=== PATIENT | male | born 2000 | race Caucasian/White ===

== ENCOUNTER 2022-02-24 20:03 | Observation (INO) | payer OTHER, SELFPAY ==
[2022-02-24] VITALS (11 sets, daily range): BP systolic 126–156; BP diastolic 51–74; PULSE 57–82; RESP 12–23; TEMP 36.7; O2SAT 98–100
--- NOTE | ~2022-02-24 | XR_ITS ---
EXAMINATION: XR chest 1V portable DATE: 02/24/2022 21:43 INDICATION: Cough and shortness of breath. TECHNIQUE: A single frontal view of the chest was obtained. COMPARISON: Chest 2 views 03/09/2007 FINDINGS: There is no pneumonia, pleural effusion, or pneumothorax. The heart size is normal. IMPRESSION: 1. No acute cardiopulmonary disease. Reviewed, dictated and finalized at location A.
[2022-02-24 20:29] LABS: Basophils Absolute Auto 0.1 K/mm3 (0.0-0.1); Basophils Percent Auto 0.5 % (0.2-1.2); Eosinophils Absolute Auto 0.1 K/mm3 (0-0.3); Eosinophils Percent Auto 0.9 % (0-4.4); Hematocrit 48.9 % (42.0-52.0); Hemoglobin 16.4 g/dL (14.0-18.0); Immature Granulocyte Absolute 0.04 K/mm3 (0.00-0.031); Immature Granulocyte Percent A 0.4 % (0-0.5); Lymphocytes Absolute Auto 3.21 K/mm3 (0.9-3.2); Lymphocytes Percent Auto 31.1 % (18.3-44.2); Mean Corpuscular HGB Conc 33.5 g/dl (32-36); Mean Corpuscular Hemoglobin 28.7 pg (26-34); Mean Corpuscular Volume 85.5 fl (80-100); Mean Platelet Volume 8.9 fl (7.4-10.4); Monocytes Absolute Auto 0.8 K/mm3 (0.1-0.6); Monocytes Percent Auto 7.4 % (2.6-8.5); Neutrophils Absolute Auto 6.2 K/mm3 (1.3-6.7); Neutrophils Percent Auto 59.7 % (45.5-73.1); Platelet Count Result 316 k/mm3 (150-375); Red Blood Count 5.72 M/mm3 (4.6-6.20); Red Cell Distribution Width 12.2 % (11.5-14.5); White Blood Count 10.3 K/mm3 (4.5-10.0)
[2022-02-24 20:41] LABS: Appearance Urine Clear (Clear); Bilirubin Urine Negative (Negative); Blood Urine Negative (Negative); Color Urine Yellow (Yellow); Glucose Urine UA Negative (Negative); Ketones Urine Negative (Negative); Leukocyte Esterase Ur Negative LEU/UL (Negative); Nitrate Urine Negative (Negative); Protein Urine Negative (Negative); Specific Grav Ur 1.015 (1.001-1.035); Urobilinogen Urine 0.2 mg/dL (<2.0); pH Urine 8.5 (5.0-9.0)
[2022-02-24 20:42] LABS: Add Urine Microscopic? NO
[2022-02-24] MEDS: SODIUM CHLORIDE 0.9% IV 1,000 ML 999 ML IV CONT (21:39)
[2022-02-24] MEDS: PANTOPRAZOLE SODIUM IV 40 MG VIAL IV PUSH (21:39)
[2022-02-24] MEDS: ONDANSETRON INJ 4 MG/2 ML VIAL IV PUSH (21:40)
[2022-02-24 21:49] LABS: Alanine Aminotransferase 17 U/L (6-50); Albumin Level 4.8 g/dL (3.7-5.6); Alkaline Phosphatase 114 U/L (58-237); Anion Gap 11 mmol/L (8-16); Aspartate Amino Transferase 24 U/L (17-59); Bilirubin,Total 0.4 mg/dL (0.2-1.3); Blood Urea Nitrogen 13 mg/dL (8-21); Calcium 9.1 mg/dL (8.9-10.7); Carbon Dioxide 27 mmol/L (22-30); Chloride 102 mmol/L (98-107); Estimated CRCL calculation 147 ml/min; Estimated Glomerular Filt Rate > 60; Glucose 91 mg/dL (65-110); Lipase 106 U/L (23-300); Potassium 4.1 mmol/L (3.4-5.0); Sodium 140 mmol/L (134-143)
--- NOTE | 2022-02-24 21:58 | ED.GENADULT ---
HPI - General Adult General Chief complaint: Abdominal Pain Stated complaint: abd pain, bodyaches Time Seen by Provider: 02/24/22 21:17 Source: patient and RN notes reviewed Mode of arrival: ambulatory Limitations: no limitations History of Present Illness HPI narrative: This is a 21 year old male who presents for evaluation of multiple complaints. He states starting 3-4 days ago he developed body aches, sore throat, nonproductive cough, diarrhea and abdominal pain. He reports his sore throat has resolved. He has intermittent epigastric abdominal pain that is currently not present. He also reports intermittent left chest pain that is random. He also reports intermittent diarrhea and he only had 1 episode today. He took 2 at home covid test that were negative. Related Data Home Medications Medication Instructions Recorded Confirmed No Home Medications 02/25/22 02/25/22 Allergies Allergy/AdvReac Type Severity Reaction Status Date / Time No Known Allergies Allergy Verified 02/24/22 21:22 Review of Systems Review of Systems: All systems reviewed & are unremarkable except as noted in HPI and below Constitutional: Constitutional: Reports chills and Reports fatigue ENT: Reports nasal congestion and Reports sore throat Cardiovascular: Cardiovascular: Reports chest pain Respiratory: Respiratory: Reports cough and Denies dyspnea Gastrointestinal: Gastrointestinal: Reports abdominal pain, Reports diarrhea and Reports nausea Genitourinary: Genitourinary: Denies hematuria and Denies dysuria Musculoskeletal: Musculoskeletal: Denies back pain and Reports myalgias PMFSH Past Medical History Medical History Patient denies medical problems Surgical History Surgical History No pertinent past surgical history Family History Family History Grandparent Heart disease Malignant neoplasm of prostate Social History Social History Social History: Patient vapes daily. Denies drug use and alcohol use. No history of drug use. 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. He lives with his girlfriend. No pets. He is a full code. Years smoked: 2 Smoking status: Current every day smoker Tobacco type: e-cigarettes/vaping Alcohol intake: never Substance use: never Spiritual care concerns: No Exam Narrative: GENERAL: Well-appearing, well-nourished, and in no acute distress. HEAD: Normocephalic, atraumatic EYES: PERRLA and EOMI, conjunctiva clear without discharge NOSE: Nares clear, no rhinorrhea or epistaxis THROAT:Mucous membranes moist, Oropharynx normal without erythema, exudate, peritonsillar swelling or fluctuance NECK: Supple, without lymphadenopathy or mass RESPIRATORY: No respiratory distress, Airway patent, Respirations non-labored, Clear to auscultation without rales, rhonchi or wheeze HEART: Regular rate and rhythm. No murmur heard. Normal peripheral pulses. ABDOMEN: Soft, nontender, nondistended, normal active bowel sounds. No masses. No rebound or guarding, No organomegaly. EXTREMITIES: No edema, normal strength with full range of motion. SKIN: Warm, dry, normal color without rash NEURO: Alert and oriented x3. CN 2-12 grossly intact. No focal deficits. PSYCH: Normal mood and affect. Course Reevaluation(s) Reevaluation #1: PAtient presents with symptoms that suggest viral syndrome. He was found to have elevated troponin. Waiting on d dimer for possible CTA. I Discussed case with DR. Andres who agrees to take over care. Date: 02/24/22 Time: 22:41 Vital Signs Vital signs: Vital Signs Temperature 98.1 F 02/24/22 20:11 Pulse Rate 68 02/24/22 20:11 Respiratory Rate 16 02/24/22 20:11 Blood Pressure 153/74 H 02/24/22 20:11 Pulse Oximetry 1
[2022-02-24 22:06] LABS: Troponin I 0.089 ng/mL (0.000-0.034)
--- NOTE | 2022-02-24 22:06 | ECG_ITS ---
Measurements Intervals [place] Rate: 65 P: 55 WA: 128 QRS: 78 QRSD: 96 T: 50 QT: 364 QTc: 378 Interpretive Statements SINUS RHYTHM WITH SINUS ARRHYTHMIA NORMAL ECG NO PREVIOUS ECG AVAILABLE FOR COMPARISON Electronically Signed On 02-25-2022 10:46:19 CDT by Douglas Quintana M.D.
--- NOTE | 2022-02-24 22:11 | PC.NURSE ---
Talked to Janna in lab at 22:11 to add on D Dimer and PT INR PTT
[2022-02-24] MEDS: ASPIRIN 81 MG CHEWABLE TABLET 324 MG PO (22:23)
[2022-02-24 22:28] LABS: INR 1.1; Prothrombin Time 13.7 Seconds (11.1-14.7)
[2022-02-24 22:29] LABS: Partial Thromboplastin Time 30.6 SECONDS (22.3-36.8)
[2022-02-24 22:45] LABS: D Dimer < 0.27 ug/mL (<0.48)
[2022-02-24 22:52] LABS: Influenza A QL RT-PCR Negative (Negative); Influenza B QL RT-PCR Negative (Negative); SARS-CoV-2 RNA PCR Negative
[2022-02-25] VITALS (27 sets, daily range): BP systolic 110–150; BP diastolic 46–85; PULSE 47–82; RESP 14–22; TEMP 36.2–37.5; O2SAT 94–100; BMI 32.5
--- NOTE | 2022-02-25 | ECHO_ITS ---
Patient Info Name: Duane Pradhan Age: 21 years : 2000 Gender: Male Ht: 72 in Wt: 240 lbs BSA: 2.38 m2 HR: 62 bpm BP: 123 / 52 mmHg Heart Rhythm: Sinus Rhythm Exam Date: 02/25/2022 1:16 PM Exam Location: [facility] Patient Status: Inpatient Admit Date: 02/25/2022 Staff Ordering Physician: Douglas Quintana MD Fishing Captain: Sadie Gould RDCS Attending Provider: Anthony Sadler MD Referring Physician: Lilian DE LA GARZA; Exam Type: CA echo doppler color flow Study Info Indications R07.9 - Chest pain, unspecified Complete two-dimensional, color flow and Doppler transthoracic echocardiogram is performed. Summary 1. Complete two-dimensional, color flow and Doppler transthoracic echocardiogram is performed. 2. Left ventricular chamber dimension is normal. 3. Left ventricular systolic function is normal, estimated at 55-60%. 4. There is no increased left ventricular wall thickness. 5. The left ventricular diastolic function is normal. 6. There is mild mitral valve regurgitation. 7. There is mild pulmonic regurgitation. Left Ventricle Left ventricular chamber dimension is normal. Left ventricular systolic function is normal, estimated at 55-60%. There is no increased left ventricular wall thickness. The left ventricular diastolic function is normal. Right Ventricle Right ventricular chamber dimension is normal. Right ventricular systolic function is normal. Left Atria Left atrial chamber dimension is normal. Right Atria Right atrial chamber dimension is normal. Atrial Septum Intact interatrial septum visualized by color flow imaging. Aortic Valve The aortic valve is trileaflet. There is no aortic valve sclerosis. There is no aortic valve stenosis. There is trace aortic valve regurgitation. Pulmonic Valve The pulmonic valve is normal. There is no pulmonic valve stenosis. There is mild pulmonic regurgitation. Mitral Valve The mitral valve has normal leaflets. There is no mitral valve stenosis. There is mild mitral valve regurgitation. Tricuspid Valve The tricuspid valve leaflets are normal. There is no significant tricuspid valve stenosis. There is trace tricuspid valve regurgitation. Pericardium/Pleural The pericardium appears normal. There is no pericardial effusion. Inferior Vena Cava Normal inferior vena cava with <50% collapse upon inspiration consistent with normal right atrial pressure, 10 mmHg. Aorta The aortic root size at the sinus of Valsalva is normal. The prox ascending aorta size is normal. Left Ventricular Outflow Tract Name Value Normal LVOT 2D LVOT Diameter 2.0 cm LVOT Doppler LVOT Peak Gradient 5 mmHg LVOT Mean Gradient 3 mmHg LVOT VTI 23 cm LVOT VTI/AV VTI Ratio 0.9 LVOT Stroke Volume 69 ml LVOT CO 3.7 l/min LVOT CI 1.5 l/min/m2 Mitral Valve
--- NOTE | 2022-02-25 02:22 | ADMGEN ---
This patient, Duane Pradhan, was admitted to IMU Room 212-. Patient/family oriented to hospital policies and general routines including ID bracelet, bed and alarms, visiting hours, pain management, procedures, bathroom and other care routines, personal items, smoking policy, room service/diet, and visiting hours. Information on how to activate the Rapid Response Team has been discussed. Patient/Family are encouraged to report perceived risks to care and to ask questions if they do not understand what they are told or what they should do.
[2022-02-25 03:46] LABS: Troponin I 0.091 ng/mL (0.000-0.034)
[2022-02-25 08:44] LABS: Hematocrit 46.9 % (42.0-52.0); Hemoglobin 15.4 g/dL (14.0-18.0); Mean Corpuscular HGB Conc 32.8 g/dl (32-36); Mean Corpuscular Hemoglobin 28.7 pg (26-34); Mean Corpuscular Volume 87.3 fl (80-100); Mean Platelet Volume 9.2 fl (7.4-10.4); Platelet Count Result 261 k/mm3 (150-375); Red Blood Count 5.37 M/mm3 (4.6-6.20); Red Cell Distribution Width 12.5 % (11.5-14.5); White Blood Count 7.6 K/mm3 (4.5-10.0)
--- NOTE | 2022-02-25 08:50 | ECG_ITS ---
Measurements Intervals [place] Rate: 53 P: 31 MO: 128 QRS: 82 QRSD: 89 T: 69 QT: 389 QTc: 367 Interpretive Statements SINUS BRADYCARDIA WITH SINUS ARRHYTHMIA MILD DIFFUSE ST ELEVATION, CONSIDER PERICARDITIS ABNORMAL ECG COMPARED TO ECG 02/24/2022 22:52:20 SINUS BRADYCARDIA NOW PRESENT Electronically Signed On 02-25-2022 10:50:36 CDT by Douglas Quintana M.D.
--- NOTE | 2022-02-25 08:54 | PM.IMHP ---
H&P: HPI History of Present Illness Date/Time: 02/25/22 08:54 Chief Complaint: Chest pain Narrative: 21yo healthy male presents to the ED with multiple complaints. 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 Also with lightheadedness with standing and with exertion. No unexplained fevers or chills. He does have night sweats but this is longstanding. No testicular pain, testicular heaviness or lower abdominal pain. No lumps/masses. He has been feeling well otherwise up until about a week ago when he developed sore throat, cough, nausea, shortness of breath, dizziness, chest tightness, and abdominal pain. The sore throat and cough early in the week and have resolved. The nausea seems to be worse in the morning and he takes Tums which has been of benefit. He has a poor diet with eating fast food twice a day. He states he may have a history of elevated blood pressure in the past but seems unsure about this. No vomiting. He has been having intermittent diarrheal stools over the past week with 1-2 a day but not daily. No melena or hematochezia. He has occasional upper abdominal pain that improves after a bowel movement. No fever or chills. No sick contacts. He has been having intermittent chest pain described as tight feeling and ?like there is a weight on the chest?. Pain is mostly in the middle of the chest without radiation. He says it is mildly pleuritic, palpable and positional. Seems to be better when he is supine. The chest tightness is associated with shortness of breath and occasional nausea. He denies any calf pain. No leg edema. No recent travel. No early heart disease in his family. He vapes daily. He tested for COVID twice over the past week both of which were negative. He has never had COVID that he is aware of. He has not had the COVID vaccine. There has been no recent new medications or other vaccines. Because of these symptoms, patient presented to the emergency room for evaluation. In the ED, patient was hemodynamically stable. Blood pressure was elevated at 153/74. EKG was read as normal. Chest x-ray was clear. Influenza and COVID test were negative. PT, PTT, D-dimer and CBC all normal with exception of a slightly elevated white count of 10.3. Comprehensive metabolic panel was normal. Lipase was normal. Troponins elevated at 0.09 and have been flat. He is given Zofran, Protonix and aspirin. He was admitted for further care. Cardiology has been consulted. Review of Systems Review of Systems: All systems reviewed & are unremarkable except as noted in HPI and below PMFSH Past Medical History Medical History Patient denies medical problems Surgical History Surgical History No pertinent past surgical history Family History Family History Grandparent Heart disease Malignant neoplasm of prostate Social History Social History Social History: Patient vapes daily. Denies drug use and alcohol use. No history of drug use. 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 No pets. He is a full code. Years smoked: 2 Smoking status: Current every day smoker Tobacco type: e-cigarettes/vaping Alcohol intake: never Substance use: never Spiritual care concerns: No Meds Home Medications and Allergies Home Medications Medication Instructions Recorded Confirmed Type No Home Medications 02/25/22 02/25/22 History Allergies Allergy/AdvReac Type Severity Reaction Status Date / Time No Known Allergies Allergy Verified 02/24/22 21:22 Vital Signs Vital Signs - 24 hr 02/24/22 20:11 02/24/22 21:20 02/24/22 22:25 Brenda
[2022-02-25 08:59] LABS: Alanine Aminotransferase 16 U/L (6-50); Albumin Level 4.5 g/dL (3.7-5.6); Alkaline Phosphatase 106 U/L (58-237); Anion Gap 8 mmol/L (8-16); Aspartate Amino Transferase 27 U/L (17-59); Bilirubin,Total 0.8 mg/dL (0.2-1.3); Blood Urea Nitrogen 12 mg/dL (8-21); Carbon Dioxide 26 mmol/L (22-30); Chloride 106 mmol/L (98-107); Estimated CRCL calculation 148 ml/min; Estimated Glomerular Filt Rate > 60; Glucose 89 mg/dL (65-110); Potassium 4.5 mmol/L (3.4-5.0); Sodium 140 mmol/L (134-143)
[2022-02-25 09:22] LABS: CRP < 0.5 mg/dL (<1.0); Troponin I 0.087 ng/mL (0.000-0.034)
[2022-02-25 09:38] LABS: Cholesterol 149 mg/dL (0-200); HDL Direct 29 mg/dL; Triglycerides 110 mg/dL (<150)
[2022-02-25] MEDS: FAMOTIDINE 20 MG TABLET PO ×2 (09:48→20:51)
[2022-02-25 09:49] LABS: LDL Cholesterol Direct 98 mg/dL
--- NOTE | 2022-02-25 10:02 | PM.CNCAR ---
Assessment and Plan Assessment and plan (1) Acute viral syndrome: Code(s): B34.9 - Viral infection, unspecified Status: Acute Assessment and Plan: Viral syndrome with subjective fever, sore throat, nausea and diarrhea with associated shortness of breath and cough (2) Elevated troponin: Code(s): R77.8 - Other specified abnormalities of plasma proteins Status: Acute Assessment and Plan: Low-grade troponin. Not related ACS. Possibly related to myocarditis/pericarditis. No rub is heard however his EKG is unremarkable. Will order an echo. DC further troponin unless change in clinical status (3) Chest pain: Code(s): R07.9 - Chest pain, unspecified Status: Acute Assessment and Plan: He has reproducible left-sided chest pain which feels like his tightness. He also has anterior chest discomfort which is burning which is likely related to his nausea/GI upset (4) Lightheadedness: Code(s): R42 - Dizziness and giddiness Status: Acute Assessment and Plan: Likely from dehydration (5) Bradycardia: Code(s): R00.1 - Bradycardia, unspecified Status: Acute Assessment and Plan: Asymptomatic and not the cause of his dizziness History of Present Illness History of Present Illness Consult date/time: 02/25/22 10:02 Requesting physician: Justino Andres MD Consult reason: chest pain Reason For Visit: chest pain,elevated troponin,viral syndrome Narrative: Date of service 02/25/2022 Reason consultation: Chest pain, elevated troponins, viral syndrome Requesting provider: Dr. Andres History patient is a 21-year-old male who started feel poorly about a week or so ago. He felt nauseated dizzy. He also had some diarrhea and sore throat. He had a subjective fever. He has also been short of breath and has had a feeling of a weight on his chest as well as some left-sided chest tightness and some anterior/middle of his chest burning which radiates up into his throat area. He states that laying down and ?spreading out ?makes his symptoms better. The discomfort in his chest has been constant for the past week. He does vape but no other drugs. He denies any syncope but does have some significant dizziness which has been present for the past week or so. No palpitations, edema, paroxysmal nocturnal dyspnea or orthopnea. He came to the hospital because of symptoms work at getting significantly better. EKG was unremarkable but troponins were drawn which were minimally elevated and Cardiology consultation was requested. Review of Systems Review of Systems: All systems reviewed & are unremarkable except as noted in HPI and below Constitutional: Constitutional: Reports fatigue and Reports lethargy Eyes: Eyes: Denies blurry vision ENT: Reports Normal hearing present Comments: Sore throat Cardiovascular: Cardiovascular: Reports chest pain Respiratory: Respiratory: Reports cough and Reports dyspnea Gastrointestinal: Gastrointestinal: Denies abdominal pain, Reports diarrhea and Reports nausea Genitourinary: Genitourinary: Denies hematuria Musculoskeletal: Musculoskeletal: Denies back pain Integumentary/Breasts: Skin/Breast: Reports dry skin Neurologic: Denies confusion Psychiatric: Psychiatric: Denies anxiety and Denies confusion Endocrine: Endocrine: Denies excessive sweating Hematologic/Lymphatic: Hematologic/Lymphatic: Denies easy bleeding Allergic/Immunologic: Allergic/Immunologic: Denies GI upset with certain foods PMFSH Past Medical History Medical History Patient denies medical problems Surgical History Surgical History No pertinent past surgical history Family History Family History Grandparent Heart disease Malignant neoplasm of prostate Social His
[2022-02-25 10:19] LABS: Creatine Kinase 104 U/L (55-170)
--- NOTE | 2022-02-25 11:38 | PCNSR ---
On 02/25/22, the student, Marian Carlton, provided care and completed [facility] documentation on this patient. I have reviewed the student's documentation and agree with the findings.
[2022-02-26] VITALS (10 sets, daily range): BP systolic 112–127; BP diastolic 46–62; PULSE 42–73; RESP 16; TEMP 36.3–36.8; O2SAT 98–100
[2022-02-26] MEDS: FAMOTIDINE 20 MG TABLET PO (09:24)
--- NOTE | 2022-02-26 13:31 | PM.DS ---
DS: Admitting Diagnosis Discharge Date 02/26/22 Admitting Diagnosis Chest pain DS: Discharge Diagnosis Discharge Diagnosis (1) Chest pain: Code(s): R07.9 - Chest pain, unspecified Status: Acute (2) Acute viral syndrome: Code(s): B34.9 - Viral infection, unspecified Status: Acute (3) Elevated troponin: Code(s): R77.8 - Other specified abnormalities of plasma proteins Status: Acute (4) Bradycardia: Code(s): R00.1 - Bradycardia, unspecified Status: Acute (5) Elevated blood-pressure reading without diagnosis of hypertension: Code(s): R03.0 - Elevated blood-pressure reading, without diagnosis of hypertension Status: Acute (6) Current every day vaping: Code(s): Z72.89 - Other problems related to lifestyle Status: Acute (7) Abdominal pain: Code(s): R10.9 - Unspecified abdominal pain Status: Acute (8) Lightheadedness: Code(s): R42 - Dizziness and giddiness Status: Acute (9) JT (obstructive sleep apnea): Code(s): G47.33 - Obstructive sleep apnea (adult) (pediatric) Status: Acute DS: Summary Hospital Course Reason for hospitalization: 21yo healthy male presents to the ED with multiple complaints.?Please see H&P for details Hospital Course: In the ED, patient was hemodynamically stable.? Blood pressure was elevated at 153/74.? EKG showed NSR with sinus arrhythmias.? Chest x-ray was clear.? Influenza and COVID test were negative.? PT, PTT, D-dimer and CBC all normal with exception of a slightly elevated white count of 10.3.? Comprehensive metabolic panel was normal.? Lipase was normal.? Troponins elevated at 0.09 and remained flat on discharge.? He was given Zofran, Protonix and aspirin.? He was admitted for further care.? Cardiology was consulted. Echo showed EF 55-60% and mild MR. Repeat EKG showing sinus bradycardia with sinus arrhythmia and mild diffuse ST elevation consistent pericarditis. Overall was felt chest pain elevated were related to either pericarditis or myocarditis. He was educated about the benefits of leading a healthy lifestyle including not vaping. Bradycardia noted but felt to be physiologic (or related to his noncompliance with his CPAP). The elevated blood pressure on admission most likely related to anxiety since his blood pressure is well controlled now. Suspect lightheadedness is from dehydration since he drinks plenty of energy drinks. He was educated about having more balance in his diet including drinking plenty of free water. Orthostatic vital signs were normal.Total creatinine kinase and CRP were normal. We provided a list of doctors accepting new patients and he was encouraged to follow up with a doctor. After admission, it was discovered that patient has JT and is noncompliant with CPAP. He was encouraged to continue using CPAP. His symptoms resolved. He feels ready for discharge. Patient overall did well and was able to be discharged home on 02/26/22 Status at Discharge Cognitive/behavioral status at discharge: Stable Time Spent with Patient Time attestation: Total time spent providing and/or coordinating discharge services:35 minutes Time spent: Greater than 30 minutes Exam Narrative: AF 98.1 116/52 51 22 100% ra Gen - NARD Chest - CTA bilaterally, nml RR CV - RRR S1/S2. Tele showing occasional bradycardia Abd - Soft, NT/ND, Positive BS Ext - No pedal edema Neuro - Alert and oriented. Nonfocal exam. Psych - Nml mood and affect Skin - Warm and dry Discharge Plan Discharge Attending physician on discharge: Anthony Sadler Consulting providers: Douglas Quintana Discharging Clinician: Anthony Sadler Anticipated Discharge Date/Time: 02/26/22 13:41 Patient Disposition: Home, Self-Care Activity: as tolerated Diet: heart healthy Discharge Instructions: Contact your doctor or call 911 and come to the Emergency Room if you have increa
== END 2022-02-26 14:58 | disposition home or self-care (01) ==
LOC: ANHED 23:52 → ANHIMU 02-25 01:50
PROVIDERS: General Practice; Admitting Provider Internal Medicine; Emergency Provider Emergency Medicine; PCP Family Medicine; Visit Provider Internal Medicine
DX: R07.9 Chest pain, unspecified (principal); B34.9 Viral infection, unspecified; R77.8 Other specified abnormalities of plasma proteins; R00.1 Bradycardia, unspecified; R03.0 Elevated blood-pressure reading, without diagnosis of hypertension; F17.290 Nicotine dependence, other tobacco product, uncomplicated; R10.9 Unspecified abdominal pain; R42 Dizziness and giddiness; G47.33 Obstructive sleep apnea (adult) (pediatric); Z99.89 Dependence on other enabling machines and devices; Z91.19 Patient's noncompliance with other medical treatment and regimen; R19.7 Diarrhea, unspecified; I34.0 Nonrheumatic mitral (valve) insufficiency; I37.1 Nonrheumatic pulmonary valve insufficiency; D72.829 Elevated white blood cell count, unspecified; Z20.822 Contact with and (suspected) exposure to COVID-19; R61 Generalized hyperhidrosis; R63.4 Abnormal weight loss; Z68.54 Body mass index [BMI] pediatric, 95th percentile for age to less than 120% of the 95th percentile for age; Z82.49 Family history of ischemic heart disease and other diseases of the circulatory system
CPT/HCPCS: 36415; 71045; 80053; 80061; 81003; 82550; 83690; 84484; 85025; 85027; 85380; 85610; 85730; 86140; 87502; 93005; 93306; 96361; 96374; 96375; 99285; A9270; C9113; C9803; G0378; J2405; J7030; U0003; U0005